=== PATIENT | male | born 1990 | race Caucasian/White ===

== ENCOUNTER 2021-12-15 11:16 | Outpatient (REF) | payer MEDICAID, SELFPAY ==
[2021-12-15 13:57] LABS: MANUAL DIFF FLAG NO
[2021-12-15 14:04] LABS: Basophils Percent Auto 0.4 % (0-2); Eosinophils Absolute Auto 0.1 X10*3/uL (0.0-0.4); Eosinophils Percent Auto 1.4 % (0-4); Hematocrit 48.1 % (42.0-52.0); Hemoglobin 15.9 g/dl (14.0-18.0); Imm Gran Abs Auto 0.03 X10*3/uL (0.00-0.03); Imm Gran Pct Auto 0.4 % (0.0-0.4); Lymphocytes Absolute Auto 1.8 X10*3/uL (1.2-4.9); Lymphocytes Percent Auto 23.8 % (20-40); Mean Corpuscular HGB Conc 33.1 g/dl (31.0-36.0); Mean Corpuscular Hemoglobin 26.4 pg (27.0-33.0); Mean Corpuscular Volume 79.8 fL (80.0-98.0); Monocytes Absolute Auto 0.6 X10*3/uL (0.1-1.2); Monocytes Percent Auto 7.9 % (2-11); Neutrophils Percent Auto 66.1 % (45-73); Platelet Count 321 X10*3/uL (160-400); Red Blood Count 6.03 X10*6/uL (4.60-5.80); Red Cell Distribution Width 13.1 % (11.0-16.0); White Blood Count 7.6 X10*3/uL (4.8-10.8)
[2021-12-15 14:38] LABS: Alanine Aminotransferase 17 U/L (0-40); Albumin Level 4.7 g/dL (3.5-5.0); Alkaline Phosphatase 69 U/L (39-117); Anion Gap 16 (12-20); Aspartate Amino Transferase 16 U/L (5-37); Bilirubin Total 0.5 mg/dL (0.0-1.0); Blood Urea Nitrogen 12 mg/dL (9-16); Calcium 10.1 mg/dL (8.4-10.2); Carbon Dioxide 23 mmol/L (22-29); Chloride 105 mmol/L (96-108); Cholesterol 191 mg/dL; Estimated Glomerular Filt Rate > 60; Glucose Fasting 77 mg/dL (60-99); HDL Cholesterol 40 mg/dL; LDL Cholesterol Calculated 132 mg/dl; Potassium 4.5 mmol/L (3.3-5.1); Sodium 139 mmol/L (135-145); Total Protein 7.3 g/dL (6.5-8.0); Triglycerides 96 mg/dL
[2021-12-15 14:56] LABS: Microalbum/Creatinine Ratio Ur 6.7 ug/mg cr; Protein/Creatinine Ratio, Ur 0.03 (<0.2); Total Protein Urine Random 10 mg/dL (<12)
[2021-12-15 15:02] LABS: Thyroid Stimulating Hormone 0.31 uIU/mL (0.32-4.0)
== END 2021-12-15 11:17 | disposition home or self-care (01) ==
LOC: HO.10HDL 11:16
PROVIDERS: Visit Provider Internal Medicine
DX: Z00.01 Encounter for general adult medical examination with abnormal findings (principal); M75.42 Impingement syndrome of left shoulder; M25.521 Pain in right elbow; J45.909 Unspecified asthma, uncomplicated; I10 Essential (primary) hypertension; F17.200 Nicotine dependence, unspecified, uncomplicated
CPT/HCPCS: 36415; 80053; 80061; 82043; 84156; 84443; 85025

== ENCOUNTER 2022-01-11 07:53 | Outpatient (REF) | payer MEDICAID, SELFPAY | END 2022-01-11 07:54 | disposition home or self-care (01) | LOC: HO.HOSX 07:53 | PROVIDERS: Visit Provider Physician Assistant | DX: Z13.89 Encounter for screening for other disorder (principal) ==

== ENCOUNTER 2023-04-25 09:18 | Outpatient (REF) | payer MEDICAID, SELFPAY ==
[2023-04-25 10:35] LABS: MANUAL DIFF FLAG NO
[2023-04-25 10:45] LABS: Basophils Absolute Auto 0.1 X10*3/uL (0.0-0.2); Basophils Percent Auto 0.5 % (0-2); Eosinophils Absolute Auto 0.2 X10*3/uL (0.0-0.4); Hematocrit 47.5 % (42.0-52.0); Imm Gran Abs Auto 0.07 X10*3/uL (0.00-0.03); Imm Gran Pct Auto 0.6 % (0.0-0.4); Lymphocytes Absolute Auto 2.4 X10*3/uL (1.2-4.9); Lymphocytes Percent Auto 21.6 % (20-40); Mean Corpuscular HGB Conc 33.7 g/dl (31.0-36.0); Mean Corpuscular Hemoglobin 26.8 pg (27.0-33.0); Mean Corpuscular Volume 79.4 fL (80.0-98.0); Mean Platelet Volume 10.8 fL (9.4-12.4); Monocytes Absolute Auto 0.7 X10*3/uL (0.1-1.2); Monocytes Percent Auto 6.7 % (2-11); Neutrophils Absolute Auto 7.5 x10*3/uL (2.0-8.3); Neutrophils Percent Auto 68.6 % (45-73); Platelet Count 328 X10*3/uL (160-400); Red Blood Count 5.98 X10*6/uL (4.60-5.80); Red Cell Distribution Width 13.1 % (11.0-16.0)
[2023-04-25 11:15] LABS: Alanine Aminotransferase 23 U/L (0-40); Albumin Level 4.7 g/dL (3.5-5.0); Alkaline Phosphatase 69 U/L (39-117); Anion Gap 12 (12-20); Aspartate Amino Transferase 16 U/L (5-37); Bilirubin Total 0.4 mg/dL (0.0-1.0); Blood Urea Nitrogen 12 mg/dL (9-16); Calcium 9.9 mg/dL (8.4-10.2); Carbon Dioxide 28 mmol/L (22-29); Chloride 104 mmol/L (96-108); Estimated Glomerular Filt Rate > 60; Glucose Random 99 mg/dL (60-115); Potassium 4.4 mmol/L (3.3-5.1); Sodium 140 mmol/L (135-145)
== END 2023-04-25 09:19 | disposition home or self-care (01) ==
LOC: HO.10HDL 09:18
PROVIDERS: Visit Provider Internal Medicine
DX: E05.90 Thyrotoxicosis, unspecified without thyrotoxic crisis or storm (principal); G47.33 Obstructive sleep apnea (adult) (pediatric); I10 Essential (primary) hypertension; R59.0 Localized enlarged lymph nodes
CPT/HCPCS: 36415; 80053; 84443; 85025

== ENCOUNTER 2023-12-25 10:03 | Outpatient (REF) | payer MEDICAID, SELFPAY ==
[2023-12-25 11:15] LABS: C Reactive Protein < 0.04 mg/dL (< or = 0.50)
[2023-12-25 11:33] LABS: Rheumatoid Factor < 13.0 IU/mL (<15.0)
[2023-12-25 11:38] LABS: Free T4 (Free Thyroxine) 0.97 ng/dL (0.71-1.85); Thyroid Stimulating Hormone 0.18 uIU/mL (0.32-4.0)
[2023-12-26 11:33] LABS: Triiodothyronine T3 Free 3.5 pg/mL (2.3-4.2)
[2023-12-26 20:38] LABS: Cyclic Citrullinated Peptide <16 UNITS
[2023-12-28 13:44] LABS: Anti Nuclear Antibody Screen NEGATIVE (NEGATIVE)
== END 2023-12-25 10:04 | disposition home or self-care (01) ==
LOC: HO.10HDL 10:03
PROVIDERS: Visit Provider Internal Medicine
DX: E05.90 Thyrotoxicosis, unspecified without thyrotoxic crisis or storm (principal); M13.0 Polyarthritis, unspecified; I10 Essential (primary) hypertension; M77.11 Lateral epicondylitis, right elbow
CPT/HCPCS: 36415; 84439; 84443; 84481; 86038; 86140; 86200; 86431

== ENCOUNTER 2024-11-26 05:53 | Outpatient (REF) | payer MEDICAID, SELFPAY ==
--- NOTE | 2024-11-26 | EMG_ITS ---
Bilateral median and ulnar motor and sensory studies were performed. Bilateral radial sensory and medial and lateral antecubital brachial sensory studies were performed and needle examination was performed. IMPRESSION: 1. Mild bilateral median neuropathy across carpal tunnel affecting motor components. 2. Bilateral Dino Debbie anastomosis, normal variant. MD YUE West/TRACY / [id number]
== END 2024-11-26 05:54 | disposition home or self-care (01) ==
LOC: HO.NEURO 05:53
PROVIDERS: PCP Internal Medicine; Visit Provider Internal Medicine
DX: G56.03 Carpal tunnel syndrome, bilateral upper limbs (principal)
CPT/HCPCS: 95886; 95913

== ENCOUNTER 2025-03-19 14:33 | Outpatient (AMB) | payer MEDICAID, SELFPAY ==
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
[2025-03-19 14:37] VITALS: BMI 27.4
--- OUTSIDE RECORDS SUMMARY | 2025-03-19 15:50 | XMS_ITS | Clinical Summary ---
Author Organization [address] Address [address] [place] [id number] Phone Care Team Providers Care Nursing Manager Name Role Phone Aurora Hale MD Primary Care Provider [phone] Surgical History Surgery Date Site/Laterality Comments OTHER SURGICAL HISTORY PROCEDURE: DENIES PREVIOUS SURGERY Medical History Medical History Date Comments Asthma DX:Asthma; COMME NT: rare use of albuterol Acid reflux DX:Acid reflux; COMMENT: quiescent as of 02/21/08 Historical Medical DX DX:MEREDITH (ge neralised anxiety disorder); COMMENT: stable as of 02/21/08 Essential (primary) hypertension DX:Essential (primary) hypertension Social History Tobacco Use Types Packs/Day Years Used Date Smoking Tobacco: Former Smokeless Tobacco: Never Alcohol Use Standard Drinks/Week Comments No 0 (1 standard drink = 0.6 oz pur e alcohol) Sex and Gender Information Value Date Recorded Sex Assigned at Not on file Legal Sex Male 2:48 PM EST Gender Identity Not on file Sexual Orientation Not on file Obstetrics History Last Filed Vital Signs Vital Sign Reading Time Taken Comments Blood Pressure - - Pulse - - Temperature - - Respiratory Rate - - Oxygen Saturation - - Inhaled Oxygen Concentration - - Weight 86.2 kg (190 lb) 09/27/2022 3:34 PM EST Height 170.2 cm (5' 7 ) 09/27/2022 3:34 PM EST Body Mass Index 29.76 09/27/2022 3:34 PM EST Plan of Treatment Health Maintenance Due Date Last Done Comments Pneumococcal Vaccine: Pediatrics (0 to 5 Years) and At-Risk Patients (6 to 64 Years) (1 of 2 - PCV) 2007 Depression Screening 10/19/2022 HIV Screening 10/19/2022 Hepatitis C Screening 10/19/2022 Social Influencers of Health Screening 10/19/2022 COVID-19 Vaccine ( season) 2024 11/29/2022, 12/15/2021, 05/09/2021, Additional history exists Influenza Vaccine (Season Ended) 2025 09/03/2021, 08/30/2007, 10/10/2005 Hypertension/CHF/CAD Annual BMP Blood Test 11/19/2025 11/19/2024 DTaP,Tdap,and Td Vaccines (9 - Td or Tdap) 10/11/2027 10/11/2017, 03/02/2007, 03/06/2000, Additional history exists Cholesterol Screening (Lipid Panel) 11/19/2029 11/19/2024 IPV Vaccines Completed 02/01/1994, 01/1993, 02/20/1991, Additional history exists Hepatitis B Vaccines Completed 05/31/1999, 01/20/1999, 10/22/1998 MMR Vaccines Completed 03/06/2000, 11/30/1989 Meningococcal ACWY Vaccine Aged Out 03/02/2007 N o longer eligible based on patient's age to complete this topic HIB Vaccines Aged Out No longer eligi ble based on patient's age to complete this topic HPV Vaccines Aged Out No longer eligi ble based on patient's age to complete this topic Hepatitis A Vaccines Aged Out No long er eligible based on patient's age to complete this topic Meningococcal B Vaccine Aged Out No l onger eligible based on patient's age to complete this topic RSV Immunization Patients Under 20 months Aged Out No longer eligible based on patient's age to complete this topic Varicella Vaccines Aged Out No longer eligible based on patient's age to complete this topic Procedures Procedure Name Priority Date/Time Associated Diagnosis Comments COMPREHENSIVE METABOLIC PANEL Routine 11/19/2024 10:20 AM EST 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 (CMS/HCC V24, CMS/HCC V28) Carpal tunnel syndrome, bilateral Essential hypertension, malignant Right lateral epicondylitis LIPID PANEL WITH REFLEX TO DIRECT LDL Routine 11/19/2024 10:20 AM EST 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 (CMS/HCC V24, CMS/HCC V28) Carpal tunnel syndrome, bilateral Essential hypertension, malignant Right lateral epicondylitis from Last 3 Months or Most Recently Relevant to Health Maintenance Results * (ABNORMAL) Lipid panel with reflex to direct LDL (11/19/2024 10:20 AM EST) Cholesterol 227(H) 0 - 200 mg/dL LAB CHEMISTRY METHOD 11/19/2024 11:39 AM EST [facility] Triglycerides 128 0 - 150 mg/dL LAB CHEMISTRY METHOD 11/19/2024 11:39 AM [facility] HDL 36(L) >=40 mg/dL LAB CHEMISTRY METHOD 11/19/2024 11:39 AM [facility] LDL Calculated 165(H) 0 - 100 mg/dL LAB CHEMISTRY METHOD 11/19/2024 11:39 AM [facility] VLDL Cholesterol Arvind 25.6 mg/dL LAB CHEMISTRY METHOD 11/19/2024 11:39 AM [facility] Non HDL Chol. (LDL+VLDL) 191(H) <145 mg/dL LAB CHEMISTRY METHOD 11/19/2024 11:39 AM [facility] Chol/HDL Ratio 6.3(H) 0.0 - 4.4 LAB CHEMISTRY METHOD 11/19/2024 11:39 AM EST [facility] Blood Venous blood specimen / Unknown Venipuncture / Unknown 11/19/2024 10:20 AM EST 11/19/2024 10:45 AM EST us Auroar Hale MD LAB BLOOD ORDERABLES Final Re sult [facility] [address] [place] [address], * Comprehensive metabolic panel (11/19/2024 10:20 AM EST) Pathologist [facility] Sodium 138 133 - 145 mmol/L LAB CHEMISTRY METHOD 11/19/2024 11:39 AM [facility] Potassium 3.5 3.5 - 5.5 mmol/L LAB CHEMISTRY METHOD 11/19/2024 11:39 AM [facility] Chloride 103 96 - 110 mmol/L LAB CHEMISTRY METHOD 11/19/2024 11:39 AM [facility] CO2 27 21 - 32 mmol/L LAB CHEMISTRY METHOD 11/19/2024 11:39 AM [facility] Anion Gap 8 3 - 11 LAB CHEMISTRY METHOD 11/19/2024 11:39 AM [facility] Glucose 91 70 - 100 mg/dL LAB CHEMISTRY METHOD 11/19/2024 11:39 AM [facility] BUN 13 5 - 25 mg/dL LAB CHEMISTRY METHOD 11/19/2024 11:39 AM [facility] Creatinine 1.10 0.70 - 1.30 mg/dL LAB CHEMISTRY METHOD 11/19/2024 11:39 AM [facility] eGFR 89 >=60 mL/min/1. 73m2 LAB CHEMISTRY METHOD 11/19/2024 11:39 AM [facility] Comment:Calculation based on the??Chronic Kidney Disease Epidemiology Collaboration (CKD-EPI) equation refit??without adjustment for race. BUN/Creatinine Ratio 11.8 LAB CHEMISTRY METHOD 11/19/2024 11:39 AM [facility] Calcium 10.0 8.5 - 10.5 mg/dL LAB CHEMISTRY METHOD 11/19/2024 11:39 AM [facility] AST (SGOT) 11 10 - 42 unit/L LAB CHEMISTRY METHOD 11/19/2024 11:39 AM [facility] ALT (SGPT) 15 10 - 60 unit/L LAB CHEMISTRY METHOD 11/19/2024 11:39 AM [facility] Alkaline Phosphatase 65 42 - 121 unit/L LAB CHEMISTRY METHOD 11/19/2024 11:39 AM [facility] Total Protein 7.1 6.0 - 8.0 g/dL LAB CHEMISTRY METHOD 11/19/2024 11:39 AM EST [facility] Albumin 4.5 3.2 - 5.0 g/dL LAB CHEMISTRY METHOD 11/19/2024 11:39 AM EST [facility] Total Bilirubin 0.9 0.0 - 1.4 mg/dL LAB CHEMISTRY METHOD 11/19/2024 11:39 AM EST [facility] Blood Venous blood specimen / Unknown Venipuncture / Unknown 11/19/2024 10:20 AM EST 11/19/2024 10:45 AM EST Aurora Hale MD LAB BLOOD ORDERABLES Final Re sult [facility] [address] [place] [address], from Last 3 Months or Most Recently Relevant to Health Maintenance Insurance MEDICAID - [place] Care Teams Nursing Manager Relationship Specialty Start Date End Date Aurora Hale MD [facility] [address] PCP - General Internal Medicine 12/23/21
--- OUTSIDE RECORDS SUMMARY | 2025-03-19 15:50 | XMS_ITS | Clinical Summary ---
Author Organization [employer] Address [address] [facility] [address] [place] [address] Care Team Providers Care Driver Guide Name Role Phone Unavailable Primary Care Provider Unavailabl e Immunizations Name Administration Dates Next Due Pfizer Covid-19 Vaccine 12+ Bivalent 11/29/2022 Social History Tobacco Use Types Packs/Day Years Used Date Smoking Tobacco: Never Assessed Sex and Gender Information Value Date Recorded Sex Assigned at Not on file Legal Sex Male 1:47 PM EST Gender Identity Not on file Sexual Orientation Not on file Plan of Treatment Health Maintenance Due Date Last Done Comments Depression Screening 1988 HIV Screening 1988 Lipid Panel 1988 SDOH Screening 1988 Alcohol/Substance Use Screening 2000 Tobacco Screening 2000 Family Planning (PISQ) 2003 Hepatitis C Screening 2006 DTaP/Tdap/Td Vaccines (1 - Tdap) 2007 Hepatitis B Vaccines (1 of 3 - 19+ 3-dose series) 2007 COVID-19 Vaccine (2 - 2023-2 5 season) 2024 11/29/2022 Influenza Vaccine (#1) 2024 Zoster Vaccines (1 of 2) 2038 RSV Patients and Pa tients Aged 60 years or older (1 - 1-dose 75+ series) 2063 HIB Vaccines Aged Out No longer eligi ble based on patient's age to complete this topic HPV Vaccines Aged Out No longer eligi ble based on patient's age to complete this topic Hepatitis A Vaccines Aged Out No long er eligible based on patient's age to complete this topic IPV Vaccines Aged Out No longer eligi ble based on patient's age to complete this topic Meningococcal Vaccine Aged Out No alejandrina jessica eligible based on patient's age to complete this topic Pneumococcal Vaccine: Pediat rics (0 to 5 Years) and At-Risk Patients (6 to 49) Years) Aged Out No longer elig ible based on patient's age to complete this topic RSV under 20 months Aged Out No longe r eligible based on patient's age to complete this topic Rotavirus Vaccines Aged Out No longer eligible based on patient's age to complete this topic Insurance [facility] STANDARD
== END 2025-03-19 15:21 | disposition home or self-care (01) ==
LOC: HO.HOS 14:34
PROVIDERS: PCP Internal Medicine
DX: R29.898 Other symptoms and signs involving the musculoskeletal system (principal); S61.411A Laceration without foreign body of right hand, initial encounter
CPT/HCPCS: 99203

== ENCOUNTER → 2025-03-19 14:33 | Outpatient (BNVA) | payer MEDICAID, SELFPAY | PROVIDERS: PCP Internal Medicine | DX: S61.411A Laceration without foreign body of right hand, initial encounter (principal); R29.898 Other symptoms and signs involving the musculoskeletal system | CPT/HCPCS: 99212 ==